=== PATIENT | male | born 1995 | race African-American/Black ===

== ENCOUNTER 2017-02-16 05:49 | Emergency (ER) | payer MEDICAID ==
[~2017-02-16] VITALS: Ht 175.3 cm; Wt 57.0 kg
[2017-02-16] MEDS ORDERED: KETOROLAC 60MG/2ML VIAL IM ONE (08:00)
[2017-02-16 08:44] VITALS: BP 120/81
== END 2017-02-16 08:52 | disposition home or self-care (01) ==
LOC: ER 08:13
DX: M79.672 Pain in left foot (principal); W22.8XXA Striking against or struck by other objects, initial encounter; Y93.89 Activity, other specified; R00.2 Palpitations; F17.210 Nicotine dependence, cigarettes, uncomplicated; R03.0 Elevated blood-pressure reading, without diagnosis of hypertension; F12.90 Cannabis use, unspecified, uncomplicated; Y92.9 Unspecified place or not applicable
CPT/HCPCS: 73630; 96372; 99284; J1885